=== PATIENT | male | born 1960 | race Caucasian/White ===

== ENCOUNTER → 2023-11-03 | Outpatient (REF) | payer OTHER, MEDICAID | LOC: M SFHCPLAZ 16:26 | PROVIDERS: ATTEND Family Medicine | DX: Z53.9 Procedure and treatment not carried out, unspecified reason (principal) ==

== ENCOUNTER 2023-12-15 11:46 | Day surgery (SDC) | payer OTHER ==
[~2023-12-15] VITALS: Ht 177.8 cm; Wt 106.4 kg
[~2023-12-15 11:46] MED LIST: ATOR1TAB21 PO; LISI10TA22 PO; METF10004 PO
[2023-12-15] MEDS: SODIUM BICARBONATE 8.4% INJ 50MEQ 50ML VIAL XX ONE (12:30)
[2023-12-15] MEDS: LIDOCAINE W/EPINEPHRINE 1% 20ML VIAL XX ONE (12:30)
[2023-12-15] MEDS ORDERED: LIDOCAINE 1% MDV 20ML VIAL As Ordered ONE (14:08)
[2023-12-15] MEDS: BACITRACIN OINTMENT 30GM TUBE As Ordered ONE (14:35)
[2023-12-15 15:08] VITALS: BP 151/88; TEMP 98.4; O2SAT 96
[2023-12-15] MEDS ORDERED: LIDOCAINE 1% MDV 20ML VIAL SC ONE (15:15)
== END 2023-12-15 15:10 | disposition home or self-care (01) ==
LOC: M SDC 11:46
PROVIDERS: ATTEND Orthopaedic Surgery Hand Surgery
DX: M65.4 Radial styloid tenosynovitis [de Quervain] (principal); E11.9 Type 2 diabetes mellitus without complications; I10 Essential (primary) hypertension; E78.00 Pure hypercholesterolemia, unspecified; Z79.899 Other long term (current) drug therapy; Z79.84 Long term (current) use of oral hypoglycemic drugs

== ENCOUNTER → 2024-01-13 | Outpatient (CLI) | payer OTHER ==
[2024-01-13 12:22] LABS: HEMOGLOBIN A1c 6.2 % (4.0-6.0)
[2024-01-13 12:36] LABS: CREATININE, URINE 174.3 MG/DL; MAU/CREAT RATIO 11.4 MCG/MG (0.0-30.0)
[2024-01-13 12:39] LABS: ALBUMIN 4.4 G/DL (3.2-5.2); ALKALINE PHOSPHATASE 47 U/L (46-116); ALT/SGPT 24 U/L (7.0-40); AST/SGOT 16 U/L (<34); BILIRUBIN,TOTAL 0.7 MG/DL (0.3-1.2); BLOOD UREA NITROGEN 19 MG/DL (9-23); CARBON DIOXIDE LEVEL 30 MMOL/L (20-31); CHLORIDE LEVEL 104 MMOL/L (98-107); CHOLESTEROL LEVEL 153 MG/DL (<200); CHOLESTEROL RISK RATIO 4.35 (<5); CREATININE FOR GFR 1.12 MG/DL (0.70-1.30); GLOMERULAR FILTRATION RATE > 60.0 (>49); GLUCOSE, FASTING 139 MG/DL (74-106); HDL CHOLESTEROL 35.1 MG/DL (>40); LDL CHOLESTEROL 83.5 MG/DL (<100); NON-HDL-C 117.9 MG/DL; POTASSIUM SERUM 4.8 MMOL/L (3.5-5.1); PSA SCREENING 5.29 NG/ML (< 4.00); SODIUM LEVEL 136 MMOL/L (136-145); TOTAL PROTEIN 7.3 G/DL (5.7-8.2); TRIGLYCERIDES LEVEL 172 MG/DL (<150)
== END ==
LOC: M PLALAB 08:01
PROVIDERS: ATTEND Family Medicine
DX: E11.29 Type 2 diabetes mellitus with other diabetic kidney complication (principal); E78.5 Hyperlipidemia, unspecified

== ENCOUNTER → 2024-07-15 | Outpatient (CLI) | payer MEDICAID, OTHER ==
[2024-07-15 11:24] LABS: HEMOGLOBIN A1c 6.4 % (4.0-6.0)
[2024-07-15 11:35] LABS: BLOOD UREA NITROGEN 19 MG/DL (9-23); CARBON DIOXIDE LEVEL 29 MMOL/L (20-31); CHLORIDE LEVEL 106 MMOL/L (98-107); CREATININE FOR GFR 1.04 MG/DL (0.70-1.30); GLOMERULAR FILTRATION RATE > 60.0 (>49); GLUCOSE, FASTING 132 MG/DL (74-106); POTASSIUM SERUM 5.2 MMOL/L (3.5-5.1); SODIUM LEVEL 139 MMOL/L (136-145)
== END ==
LOC: M PLALAB 07:37
PROVIDERS: ATTEND Family Medicine
DX: E11.29 Type 2 diabetes mellitus with other diabetic kidney complication (principal); N18.2 Chronic kidney disease, stage 2 (mild)

== ENCOUNTER → 2025-01-19 | Outpatient (CLI) | payer OTHER ==
[2025-01-19 12:56] LABS: CREATININE, URINE 130.6 MG/DL; MAU/CREAT RATIO 11.4 MCG/MG (0.0-30.0)
[2025-01-19 12:59] LABS: ALBUMIN 4.2 G/DL (3.2-5.2); BILIRUBIN,TOTAL 0.6 MG/DL (0.3-1.2); CALCIUM LEVEL 9.5 MG/DL (8.3-10.6); CHOLESTEROL RISK RATIO 3.91 (<5); CREATININE FOR GFR 1.05 MG/DL (0.70-1.30); GLOMERULAR FILTRATION RATE 80.3 (>49); HDL CHOLESTEROL 32.2 MG/DL (>40); LDL CHOLESTEROL 68.2 MG/DL (<100); NON-HDL-C 93.8 MG/DL; POTASSIUM SERUM 4.9 MMOL/L (3.5-5.1); TOTAL PROTEIN 7.2 G/DL (5.7-8.2)
[2025-01-19 14:26] LABS: HEMOGLOBIN A1c 5.2 % (4.0-6.0)
== END ==
LOC: M PLALAB 08:02
PROVIDERS: ATTEND Family Medicine
DX: E78.2 Mixed hyperlipidemia (principal); E11.29 Type 2 diabetes mellitus with other diabetic kidney complication; R80.9 Proteinuria, unspecified